=== PATIENT | male | born 1955 | race Caucasian/White ===

== ENCOUNTER 2018-01-19 16:55 | Emergency (ER) | payer SELFPAY ==
[~2018-01-19] VITALS: Ht 180.3 cm; Wt 95.3 kg
[2018-01-19 17:06] VITALS: BP 91/50
--- NOTE | 2018-01-19 17:51 | RAD ---
CT head without intravenous contrast History: Fall. Dizziness. Trauma. Anticoagulated. Comparison: None. Technique: Axial images are obtained of the head from the skull base through the vertex without IV contrast. Exposure: One or more of the following individualized dose reduction techniques were utilized for this examination: 1. Automated exposure control 2. Adjustment of the mA and/or kV according to patient size 3. Use of iterative reconstruction technique Findings: The ventricles are appropriate in size, shape, and location for the patient's age. No obvious intracranial mass, mass-effect, midline shift, hemorrhage or obvious acute infarction is identified. Basilar cisterns are patent. Small-moderate old right lateral frontal infarction is seen. Bone windows demonstrate no acute calvarial abnormality. Impression: 1. No acute intracranial process. Please note that CT can be relatively insensitive to acute ischemic infarction for up to 24 hours after symptom onset. 2. 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 CT face without contrast Technique: CT of the face was performed without intravenous contrast. Axial, sagittal, and coronal reconstructions were obtained. Exposure: One or more of the following individualized dose reduction techniques were utilized for this examination: 1. Automated exposure control 2. Adjustment of the mA and/or kV according to patient size 3. Use of iterative reconstruction technique Findings: No acute fracture is identified. Bilateral orbits and orbital contents appear intact. Moderate left maxillary sinus opacification is seen. Left maxillary sinus is decreased size relative the contralateral side, may represent changes of chronic sinusitis (sinus atelectasis). Mild right maxillary sinus mucosal disease is seen. There is deformity of the nasal septum, although this might be a chronic finding; evaluation is limited secondary lack of previous imaging.. Impression: 1. No definite acute facial fracture identified. 2. Paranasal sinus disease. Electronically signed by: Glen Mera MD (01/19/2018 5:47 PM) [facility]
--- NOTE | 2018-01-19 18:02 | PHYS DOC ---
Past Medical History Past Medical History: Unknown Alcohol Use: Occasionally Drug Use: None Adult General Chief Complaint Chief Complaint: MECHANICAL FALL HPI HPI Patient is a 62 year old [f__sex] who presents with [] Review of Systems Review of Systems Constitutional: Denies fever or chills [] Eyes: Denies change in visual acuity, redness, or eye pain [] HENT: Denies nasal congestion or sore throat [] Respiratory: Denies cough or shortness of breath [] Cardiovascular: No additional information not addressed in HPI [] GI: Denies abdominal pain, nausea, vomiting, bloody stools or diarrhea [] : Denies dysuria or hematuria [] Musculoskeletal: Denies back pain or joint pain [] Integument: Denies rash or skin lesions [] Neurologic: Denies headache, focal weakness or sensory changes [] Endocrine: Denies polyuria or polydipsia [] All other systems were reviewed and found to be within normal limits, except as documented in this note. Allergies Allergies Allergies Coded Allergies Type Severity Reaction Last Updated Verified No Known Drug Allergies 01/19/18 No Physical Exam Physical Exam Constitutional: Well developed, well nourished, no acute distress, non-toxic appearance. [] HENT: Normocephalic, atraumatic, bilateral external ears normal, oropharynx moist, no oral exudates, nose normal. [] Eyes: PERRLA, EOMI, conjunctiva normal, no discharge. [] Neck: Normal range of motion, no tenderness, supple, no stridor. [] Cardiovascular:Heart rate regular rhythm, no murmur [] Lungs & Thorax: Bilateral breath sounds clear to auscultation [] Abdomen: Bowel sounds normal, soft, no tenderness, no masses, no pulsatile masses. [] Skin: Warm, dry, no erythema, no rash. [] Back: No tenderness, no CVA tenderness. [] Extremities: No tenderness, no cyanosis, no clubbing, ROM intact, no edema. [] Neurologic: Alert and oriented X 3, normal motor function, normal sensory function, no focal deficits noted. [] Psychologic: Affect normal, judgement normal, mood normal. [] Current Patient Data Vital Signs Vital Signs Date Time Temp Pulse Resp B/P (MAP) Pulse Ox O2 Delivery O2 Flow Rate FiO2 01/19/18 17:44 73 20 95 01/19/18 17:06 97.8 91/50 (64) Room Air 97.8 EKG EKG [] Radiology/Procedures Radiology/Procedures []PATIENT: RASHEED MERCER DACCOUNT: [id number]#: [id number] : 1955 LOCATION: ER AGE: 62 SEX: M EXAM STATUS: REG ER ORD. PHYSICIAN: KERRIE VALDES APRN REASON: fell today, on coumadin PROCEDURE: CT HEAD AND MAXILLOFACIAL WO CT head without intravenous contrast History: Fall. Dizziness. Trauma. Anticoagulated. Comparison: None. Technique: Axial images are obtained of the head from the skull base through the vertex without IV contrast. Exposure: One or more of the following individualized dose reduction techniques were utilized for this examination: 1. Automated exposure control 2. Adjustment of the mA and/or kV according to patient size 3. Use of iterative reconstruction technique Findings: The ventricles are appropriate in size, shape, and location for the patient's age. No obvious intracranial mass, mass-effect, midline shift, hemorrhage or obvious acute infarction is identified. Basilar cisterns are patent. Small-moderate old right lateral frontal infarction is seen. Bone windows demonstrate no acute calvarial abnormality. Impression: 1. No acute intracranial process. Please note that CT can be relatively insensitive to acute ischemic infarction for up to 24 hours after symptom onset. 2. 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 CT face without contrast Technique: CT of the face was performed without intravenous contrast. Axial, sagittal, and coronal reconstructions were obtained. Exposure: One or more of the following individualized dose reduction techniques were utilized for this examination: 1. Automated exposure control 2. Adjustment of the mA and/or kV according to patient size 3. Use of iterative reconstruction technique Findings: No acute fracture is identified. Bilateral orbits and orbital contents appear intact. Moderate left maxillary sinus opacification is seen. Left maxillary sinus is decreased size relative the contralateral side, may represent changes of chronic sinusitis (sinus atelectasis). Mild right maxillary sinus mucosal disease is seen. There is deformity of the nasal septum, although this might be a chronic finding; evaluation is limited secondary lack of previous imaging.. Impression: 1. No definite acute facial fracture identified. 2. Paranasal sinus disease. Electronically signed by: Carlos Mera MD (01/19/2018 5:47 PM) [facility] DICTATED and SIGNED BY: CARLOS MERA MD DATE: 01/19/18 1740 Course & Med Decision Making Course & Med Decision Making Pertinent Labs and Imaging studies reviewed. (See chart for details) [] Dragon Disclaimer Dragon Disclaimer This electronic medical record was generated, in whole or in part, using a voice recognition dictation system. Departure Departure Impression: Primary Impression: Facial contusion Disposition: HOME, SELF-CARE Condition: STABLE Referrals: UNKNOWN PCP NAME (PCP) Patient Instructions: Contusions-SportsMed, Head Injury, Adult Additional Instructions: If you develop headache, dizziness or visual disturbances return to the emergency department or call 911 immediately. Follow-up your primary care provider for recheck in 2 days. KERRIE VALDES APRN Jan 19, 2018 18:02
--- NOTE | 2018-01-20 16:02 | EKG ---
[facility] [address] [place] [address] Test Date: 2018-01-19 Test Time: 17:08:13 Pat Name: RASHEED MERCER Department: Room: Gender: M Staff Design Engineer: : [id number] Requested By: KERRIE VALDES Order Number: [id number] Reading MD: Micah Flores MD Measurements Intervals Sturgeon Rate: 73 P: 0 NC: 174 QRS: -28 QRSD: 80 T: 5 QT: 370 QTc: 411 Interpretive Statements SINUS RHYTHM Electronically Signed On 01-21-2018 13:44:21 CDT by Micah Flores MD
== END 2018-01-19 18:55 | disposition home or self-care (01) ==
LOC: ER 16:55
DX: S00.83XA Contusion of other part of head, initial encounter (principal); R42 Dizziness and giddiness; J32.0 Chronic maxillary sinusitis; X58.XXXA Exposure to other specified factors, initial encounter; Y93.89 Activity, other specified; Y92.89 Other specified places as the place of occurrence of the external cause; Y99.8 Other external cause status
CPT/HCPCS: 70450; 70486; 93005; 99284

== ENCOUNTER → 2019-04-17 | Outpatient (CLI) | payer OTHER ==
[2018-01-19 17:44] VITALS: BP 114/56
[2019-04-17 11:21] LABS: PROTHROMBIN TIME PATIENT 17.2 SEC (11.7-14.0)
== END | disposition home or self-care (01) ==
LOC: LAB 10:33
PROVIDERS: ATTEND Registered Nurse Medical-Surgical
DX: Z79.01 Long term (current) use of anticoagulants (principal)
CPT/HCPCS: 36415; 85610